=== PATIENT | female | born 1940 | race Caucasian/White ===

== ENCOUNTER → 2017-09-09 | Outpatient (CLI) | payer MEDICARE, BC ==
--- NOTE | 2017-09-10 09:26 | MM ---
Reason for exam: screening (asymptomatic). Last mammogram was performed 12 years and 2 months ago. History: Patient is postmenopausal and history of other cancer. Taking estrogen for 11 years. Physical Findings: A clinical breast exam by your physician is recommended on an annual basis and results should be correlated with mammographic findings. MG 3D Screening Mammo W/Cad Bilateral CC, MLO, and XCCL view(s) were taken. Prior study comparison: August 20, 2016, mammogram. August 08, 2015, mammogram. There are scattered fibroglandular densities. Finding: There are typically benign calcifications in both breasts. No significant changes in finding since August 20, 2016 and August 08, 2015. ASSESSMENT: Benign, BI-RAD 2 RECOMMENDATION: Routine screening mammogram of both breasts in 1 year.
== END | disposition home or self-care (01) ==
LOC: RADMAMWWP 12:44
PROVIDERS: ATTEND Internal Medicine
DX: Z12.31 Encounter for screening mammogram for malignant neoplasm of breast (principal)
CPT/HCPCS: 77063; G0202

== ENCOUNTER 2019-03-17 07:54 | Day surgery (SDC) | payer MEDICARE, BC ==
[2019-03-12 17:37] VITALS: BMI 25.9
[~2019-03-17 07:54] MED LIST: LACTATED RINGERS 1,000 ML IV SCH
[2019-03-17 08:44] VITALS: RESP 18; TEMP 97.8
[2019-03-17] MEDS ORDERED: LIDOCAINE 1% 20 ML VIAL (10MG/ML) FOR IV START INTRADERMA ONE (08:44)
[2019-03-17] MEDS ORDERED: LACTATED RINGERS 1,000 ML IV ONE (08:44)
--- NOTE | 2019-03-17 09:40 | P.GSHP ---
History of Present Illness H&P Date: 03/17/19 Chief Complaint: GI bleed This is a 78-year-old female who presents today for colonoscopy. She's had issues with rectal bleeding. Past Medical History Past Medical History: Cancer, Hyperlipidemia, Hypertension, Rheumatoid Arthritis (RA) Additional Past Medical History / Comment(s): HAS KIDNEY STONES. BASAL CELL FOREHEAD. History of Any Multi-Drug Resistant Organisms: None Reported Past Surgical History: Cholecystectomy, Hysterectomy, Joint Replacement Additional Past Surgical History / Comment(s): CYST & OVARY REMOVED 11/2018. COLONOSCOPY. TOTAL RT KNEE, SHIKHA HIPS. SKIN LESION EXC, SKIN GRAFT. Past Anesthesia/Blood Transfusion Reactions: No Reported Reaction Smoking Status: Former smoker - Past Family History Mother Family Medical History: No Reported History Medications and Allergies Home Medications Medication Instructions Recorded Confirmed Type Alendronate Sodium [Fosamax] 35 mg PO Q14D 03/12/19 03/12/19 History Aspirin [Adult Low Dose Aspirin EC] 81 mg PO DAILY 03/12/19 03/12/19 History Biotin 5,000 mcg PO DAILY 03/12/19 03/12/19 History Calcitriol [Rocaltrol] 0.25 mcg PO MOFR 03/12/19 03/12/19 History Calcium/Magnesium/Zinc 1 each PO DAILY 03/12/19 03/12/19 History [Nzxysiy-Orbdssrxc-Xuoo Tablet] Fish Oil/Dha/Epa [Fish Oil 1,200 1 each PO DAILY 03/12/19 03/12/19 History mg Fish Oil] Multivitamins, Thera [Multivitamin 1 tab PO DAILY 03/12/19 03/12/19 History (formulary)] Oxybutynin Chloride [Ditropan] 5 mg PO HS 03/12/19 03/12/19 History Pravastatin Sodium [Pravachol] 20 mg PO HS 03/12/19 03/12/19 History amLODIPine [Norvasc] 5 mg PO DAILY 03/12/19 03/12/19 History Allergies Allergy/AdvReac Type Severity Reaction Status Date / Time No Known Allergies Allergy Verified 03/12/19 17:14 Surgical - Exam Vital Signs Temp Pulse Resp BP Pulse Ox 97.8 F 69 18 177/78 100 03/17/19 08:43 03/17/19 08:43 03/17/19 08:43 03/17/19 08:43 03/17/19 08:43 - General well developed, well nourished, no distress - Eyes PERRL - ENT normal pinna - Neck no masses - Respiratory normal expansion - Cardiovascular Rhythm: regular - Abdomen Abdomen: soft, non tender Assessment and Plan Assessment: History of GI bleed. We'll perform colonoscopy.
[2019-03-17] MEDS ORDERED: LIDOCAINE 1% INJ 10MG/ML (20 ML MDV) ONE (09:43)
[2019-03-17] MEDS ORDERED: GLUCAGON 1 MG/ML VIAL ONE (09:43)
[2019-03-17] MEDS ORDERED: LABETALOL 5 MG/ML VIAL MDV ONE (09:43)
[2019-03-17] MEDS ORDERED: PROPOFOL 10 MG/ML 20 ML VIAL IV ONE (09:43)
--- NOTE | 2019-03-17 10:00 | P.OP ---
Date of Procedure: 03/17/19 Preoperative Diagnosis: GI bleed Postoperative Diagnosis: Diverticulosis Procedure(s) Performed: Colonoscopy Anesthesia: MAC Surgeon: Emanuel Rodriguez Pathology: none sent Condition: stable Disposition: PACU Description of Procedure: The patient's placed on the endoscopy table in the lateral position. She received IV sedation. Digital rectal exam was performed which revealed no abnormalities. Flexible colonoscope was then placed patient anus and passed throughout the entire colon. The ileocecal valve was visually's. The cecum, ascending and transverse colon appeared normal. In the descending and; was a few scattered diverticula. There is no evidence of any diverticular bleeding or diverticulitis. The scope was then brought back the rectum and this appeared normal. Scope was withdrawn for patient.
[2019-03-17 10:20] VITALS: BP 153/79; PULSE 88
== END 2019-03-17 10:45 | disposition home or self-care (01) ==
LOC: ORWHC2ENDO 07:54
PROVIDERS: ATTEND Surgery
DX: K57.30 Diverticulosis of large intestine without perforation or abscess without bleeding (principal); Z87.19 Personal history of other diseases of the digestive system; E78.5 Hyperlipidemia, unspecified; I10 Essential (primary) hypertension; M06.9 Rheumatoid arthritis, unspecified; N20.0 Calculus of kidney; Z79.82 Long term (current) use of aspirin; Z79.83 Long term (current) use of bisphosphonates; Z79.899 Other long term (current) drug therapy; Z90.49 Acquired absence of other specified parts of digestive tract; Z90.710 Acquired absence of both cervix and uterus; Z96.651 Presence of right artificial knee joint; Z96.643 Presence of artificial hip joint, bilateral; Z85.828 Personal history of other malignant neoplasm of skin; Z87.891 Personal history of nicotine dependence
CPT/HCPCS: 45378; J1610; J2001; J2704

== ENCOUNTER → 2021-03-10 | Outpatient (CLI) | payer MEDICARE, BC ==
--- NOTE | 2021-03-10 18:49 | MR ---
EXAMINATION TYPE: MR brain wo con DATE OF EXAM: 03/10/2021 COMPARISON: None HISTORY: No contrast. No prior studies. Patient having memory issues. There is cerebral cortical atrophy. There is no mass effect nor midline shift. There is no evidence o f intracranial hemorrhage. Diffusion images show no evidence of an acute cortical infarct. The brains tem is intact. There is some increased signal in the white matter around the lateral ventricles. Ther e are numerous foci that measure up to 7 mm. Most of these are small and less than 3 mm. The largest is in the left parietal lobe. Sella turcica is normal. There is some thinning of the corpus callosum. IMPRESSION: Cerebral atrophy. White matter signal changes probably from chronic small vessel ischemia. No evidenc e of a cortical infarct. Demyelinating disease not excluded.
== END | disposition home or self-care (01) ==
LOC: RADMRIMAIN 13:19
PROVIDERS: ATTEND Psychiatry & Neurology Neurology
DX: G31.9 Degenerative disease of nervous system, unspecified (principal); R90.82 White matter disease, unspecified
CPT/HCPCS: 70551

== ENCOUNTER 2023-02-11 09:03 | Day surgery (SDC) | payer MEDICARE, BC ==
[2023-02-06 16:17] VITALS: BMI 25.2
[~2023-02-11 09:03] MED LIST changes: -LACTATED RINGERS 1,000 ML IV SCH; +LIDOCAINE 1% (10MG/ML) FOR IV START INTRADERMA PRN
[2023-02-11] MEDS: LACTATED RINGERS 1,000 ML IV SCH ×2 (09:38→09:58)
[2023-02-11 09:58] VITALS: RESP 16; TEMP 98.3
[2023-02-11] MEDS ORDERED: PROPOFOL 10 MG/ML 20 ML VIAL IV ONE (10:04)
--- NOTE | 2023-02-11 10:23 | P.PCN ---
Date of Procedure: 02/11/23 Procedure(s) Performed: BRIEF HISTORY: Patient is a 82-year-old pleasant white female scheduled for an elective colonoscopy as a part of evaluation of intermittent rectal bleeding for the last 2 weeks' duration. PROCEDURE PERFORMED: Colonoscopy snare polypectomy. PREOPERATIVE DIAGNOSIS: Intermittent rectal bleeding. IV sedation per Anesthesia. PROCEDURE: After informed consent was obtained, the patient, was brought into the endoscopy unit. IV sedation was administered by Anesthesia under continuous monitoring. Digital rectal examination was normal. Initially the Olympus CF-160 flexible video colonoscope was then inserted in the rectum, gradually advanced into the cecum without any difficulty. Careful examination was performed as the scope was gradually being withdrawn. Ileocecal valve and the appendiceal orifice were visualized and appeared normal. Prep was excellent. Mucosa of the cecum, ascending colon, transverse colon, descending colon, sigmoid colon, and rectum appeared normal. In the distal rectum there was a 5 mm polyp removed by snare polypectomy. Retroflexion was performed in the rectum and small internal hemorrhoids were seen. The patient tolerated the procedure well. IMPRESSION: 5 mm distal rectal polyp status post polypectomy Small internal hemorrhoids RECOMMENDATIONS: Findings of this examination were discussed with the patient as well as a family.. She was advised to follow with the biopsy results. Continue with a high-fiber diet and avoid straining and constipation
[2023-02-11 10:33] VITALS: PULSE 79
[2023-02-11 10:48] VITALS: BP 153/73
== END 2023-02-11 11:28 | disposition home or self-care (01) ==
LOC: ORWHC2ENDO 09:03
PROVIDERS: ATTEND Internal Medicine Gastroenterology
DX: D12.8 Benign neoplasm of rectum (principal); K64.8 Other hemorrhoids; I10 Essential (primary) hypertension; E78.5 Hyperlipidemia, unspecified; Z87.442 Personal history of urinary calculi; Z87.891 Personal history of nicotine dependence; Z79.82 Long term (current) use of aspirin; Z79.899 Other long term (current) drug therapy
CPT/HCPCS: 88305; 45385; J2704